=== PATIENT | female | born 1990 | race Caucasian/White ===

== ENCOUNTER 2019-01-10 07:27 | Inpatient (IN) | payer MEDICAID ==
[2019-01-10] MEDS: LACTATED RINGER'S 1,000 ML IV ×3 (08:31→10:54)
[2019-01-10] MEDS ORDERED: METHYLERGONOVINE 0.2 MG INJ IM ×2 (10:00→13:00)
[2019-01-10] MEDS ORDERED: OXYTOCIN 30 UNITS/LR 500 ML IV ×3 (10:00→13:00)
[2019-01-10] MEDS ORDERED: MISOPROSTOL 200 MCG TAB PR ×2 (10:00→13:00)
[2019-01-10] MEDS ORDERED: CARBOPROST 250 MCG INJ IM ×2 (10:00→13:00)
[2019-01-10 10:04] LABS: ADD MAN DIFF? NO
[2019-01-10 10:06] LABS: BASOPHIL # 0.1 10^3/ul (0.0-0.1); BASOPHILS % 0.5 % (0.0-2.0); EOSINOPHILS # 0.1 10^3/ul (0.0-0.5); EOSINOPHILS % 1.4 % (0.0-7.0); HEMATOCRIT 28.9 % (37.0-47.0); HEMOGLOBIN 9.1 g/dl (12.0-16.0); LYMPHOCYTES # 2.5 10^3/ul (0.8-2.9); LYMPHOCYTES % 26.5 % (15.0-51.0); MEAN CORPUSCULAR HEMOGLOBIN 23.9 pg (29.0-33.0); MEAN CORPUSCULAR HGB CONC 31.5 g/dl (32.0-37.0); MEAN CORPUSCULAR VOLUME 76.1 fl (82.0-101.0); MEAN PLATELET VOLUME 10.4 fl (7.4-10.4); MONOCYTE # 0.6 10^3/ul (0.3-0.9); MONOCYTES % 6.4 % (0.0-11.0); NEUTROPHIL # 6.1 10^3/ul (1.6-7.5); NEUTROPHILS % 64.7 % (39.0-77.0); PLATELET COUNT 290 10^3/UL (140-415); RED CELL DISTRIBUTION WIDTH 14.5 % (11.5-14.5)
[2019-01-10 10:06] LABS: WHITE BLOOD COUNT 9.4 10^3/ul (4.8-10.8)
[2019-01-10 10:28] LABS: INR 0.92; PROTIME 12.5 Sec (11.9-14.9)
[2019-01-10] MEDS ORDERED: ZOLPIDEM 5 MG TAB PO (11:30)
[2019-01-10] MEDS ORDERED: HYDROmorphONE 0.5 MG/0.5 ML SYG IV (11:30)
[2019-01-10] MEDS ORDERED: NALOXONE (0.4 MG/ML) INJ IV (11:30)
[2019-01-10] MEDS ORDERED: DIPHENHYDRAMINE 50 MG INJ IV (11:30)
[2019-01-10] MEDS ORDERED: FENTAnyl 50 MCG/ML VIAL (11:35)
[2019-01-10] MEDS ORDERED: morphine SULFATE/PF (10 MG/10 ML) INJ (11:35)
[2019-01-10] MEDS ORDERED: FAMOTIDINE 20 MG INJ (11:46)
[2019-01-10] MEDS ORDERED: DEXAMETHASONE 4 MG/ML 1 ML INJ (11:46)
[2019-01-10] MEDS: CEFAZOLIN 2 GM/50 ML (PMX) 50 ML IVPB ×3 (11:53→18:08)
[2019-01-10] MEDS ORDERED: MIDAZOLAM 1 MG/ML 2 ML INJ (12:24)
[2019-01-10] MEDS ORDERED: KETAMINE (50 MG/ML) 10 ML VIAL (12:26)
[2019-01-10] MEDS ORDERED: NACL 0.9% 3 ML SYG IV (13:00)
[2019-01-10] MEDS ORDERED: CEFAZOLIN 2 GM/50 ML (PMX) 50 ML IVPB (13:00)
[2019-01-10 13:12] LABS: HEPATITIS B SURFACE ANTIGEN NEGATIVE (NEGATIVE)
[2019-01-10] MEDS: KETOROLAC 30 MG INJ IV ×2 (13:50→20:38)
[2019-01-10] MEDS: OXYTOCIN 30 UNITS/LR 500 ML IV (14:50)
[2019-01-10] MEDS: HYDROmorphONE 0.5 MG/0.5 ML SYG IV (15:25)
[2019-01-10] MEDS ORDERED: IBUPROFEN 600 MG TAB PO (18:00)
[2019-01-10] MEDS: ONDANSETRON 4 MG INJ IV (18:31)
[2019-01-10 22:28] LABS: RAPID PLASMA REAGIN NONREACTIVE (NR)
[2019-01-11] MEDS: LACTATED RINGER'S 1,000 ML IV (00:45)
[2019-01-11] MEDS: CEFAZOLIN 2 GM/50 ML (PMX) 50 ML IVPB ×2 (02:15→09:51)
[2019-01-11] MEDS: KETOROLAC 30 MG INJ IV ×2 (02:35→09:50)
[2019-01-11 08:28] LABS: ADD MAN DIFF? NO
[2019-01-11 08:33] LABS: WHITE BLOOD COUNT 11.2 10^3/ul (4.8-10.8)
[2019-01-11 08:33] LABS: BASOPHILS % 0.4 % (0.0-2.0); EOSINOPHILS # 0.1 10^3/ul (0.0-0.5); EOSINOPHILS % 0.8 % (0.0-7.0); HEMATOCRIT 22.6 % (37.0-47.0); HEMOGLOBIN 7.2 g/dl (12.0-16.0); LYMPHOCYTES # 3.1 10^3/ul (0.8-2.9); LYMPHOCYTES % 27.5 % (15.0-51.0); MEAN CORPUSCULAR HEMOGLOBIN 24.3 pg (29.0-33.0); MEAN CORPUSCULAR HGB CONC 31.9 g/dl (32.0-37.0); MEAN CORPUSCULAR VOLUME 76.4 fl (82.0-101.0); MEAN PLATELET VOLUME 10.4 fl (7.4-10.4); MONOCYTE # 0.7 10^3/ul (0.3-0.9); MONOCYTES % 6.4 % (0.0-11.0); NEUTROPHIL # 7.3 10^3/ul (1.6-7.5); NEUTROPHILS % 64.5 % (39.0-77.0); PLATELET COUNT 275 10^3/UL (140-415); RED BLOOD COUNT 2.96 10^6/ul (4.20-5.40); RED CELL DISTRIBUTION WIDTH 14.6 % (11.5-14.5)
[2019-01-11] MEDS: IBUPROFEN 600 MG TAB PO ×2 (12:00→17:47)
[2019-01-11] MEDS: MAGNESIUM HYDROXIDE 30ML CUP PO (16:23)
[2019-01-11] MEDS ORDERED: OXYCODONE/ACETAMINOPHEN (5/325) TAB (19:14)
[2019-01-11] MEDS: OXYCODONE/ACETAMINOPHEN (5/325) TAB PO (19:16)
[2019-01-11] MEDS: DOCUSATE SODIUM 100 MG CAP PO (21:02)
[2019-01-12] MEDS: OXYCODONE/ACETAMINOPHEN (5/325) TAB PO ×3 (01:06→19:43)
[2019-01-12] MEDS: IBUPROFEN 600 MG TAB PO ×5 (01:06→23:52)
[2019-01-12] MEDS: DOCUSATE SODIUM 100 MG CAP PO ×2 (11:46→21:21)
[2019-01-12] MEDS: LANOLIN HPA 1 PKT TOP (13:27)
[2019-01-13] MEDS: IBUPROFEN 600 MG TAB PO ×2 (05:42→12:31)
[2019-01-13] MEDS: DOCUSATE SODIUM 100 MG CAP PO (09:29)
[2019-01-13] MEDS: DIPHTH/TET/ACEL PERTUSS (ADULT) 0.5 ML VIAL IM* (12:48)
== END 2019-01-13 14:20 | disposition home or self-care (01) | DRG 785 ==
LOC: OBT 07:27 → L-D 07:28 → OBT 09:00 → L-D 09:50 → PP1 14:39
PROVIDERS: Obstetrics & Gynecology
PROC: 10D00Z1 Extraction of Products of Conception, Low, Open Approach (ICD-10-PCS; principal; 2019-01-10 12:00)
PROC: 0UB70ZZ Excision of Bilateral Fallopian Tubes, Open Approach (ICD-10-PCS; 2019-01-10 12:00)
DX: O34.211 Maternal care for low transverse scar from previous cesarean delivery (principal); Z3A.37 37 weeks gestation of pregnancy; Z37.0 Single live birth; Z30.2 Encounter for sterilization
CPT/HCPCS: 76818; 85025; 85610; 85730; 86592; 86850; 86900; 86901; 87340; 88302; 99464